=== PATIENT | female | born 1955 | race Two or more races ===

== ENCOUNTER 2019-03-14 22:42 | Emergency (ER) | payer OTHER ==
[~2019-03-14] VITALS: Ht 167.6 cm; Wt 71.0 kg
--- NOTE | 2019-03-14 22:51 | NUR ---
THIS IS A 63Y F THAT COMES IN VIA EMS W/ ABD PAIN. PT TOOK HOME MEDS AROUND 1830 WITH NO RELIEF FROM PAIN. PT HAS HX OF GERD AND TAKES PROTONIX AT HOME. PT DENIES VOMTING BUT FEELS NAUSEATED. PT MEDICATED [employer] WITH EMS, PT REPORTS IMPROVED NAUSEA. PT CONNECTED TO MONITORING, VSS, CALL LIGHT IN REACH
[2019-03-14] MEDS ORDERED: MAALOX/HYOSCYAMINE/LIDOCAINE 45 ML BTL ONE (23:31)
[2019-03-14 23:34] VITALS: BP 116/62
[2019-03-15] MEDS ORDERED: MAALOX/HYOSCYAMINE/LIDOCAINE 45 ML BTL PO ONE
--- NOTE | 2019-03-15 00:18 | NUR ---
Patient/Caregiver given discharge instructions and they have confirmed that they understand the instructions. Patient ambulatory with steady gait. IV DC PRIOR TO PT LEAVING FACILITY
== END 2019-03-15 00:19 | disposition home or self-care (01) ==
LOC: ED 23:45
DX: R10.13 Epigastric pain (principal); K21.9 Gastro-esophageal reflux disease without esophagitis; Z90.710 Acquired absence of both cervix and uterus; Z88.6 Allergy status to analgesic agent; Z88.8 Allergy status to other drugs, medicaments and biological substances; Z79.899 Other long term (current) drug therapy; Z87.891 Personal history of nicotine dependence
CPT/HCPCS: 99283